=== PATIENT | male | born 1970 | race Caucasian/White ===

== ENCOUNTER 2023-11-01 18:29 | Inpatient (IN) | payer MEDICAID, OTHER ==
[~2023-11-01] VITALS: Ht 177.8 cm; Wt 83.4 kg
[2023-11-01] MEDS: INSULIN LISPRO (HUMAN) 100 UNITS/ML ML SC ONE (19:02)
[2023-11-01] MEDS: SODIUM CHLORIDE 0.9% 1,000 ML IV ONE ×2 (19:03→20:42)
[2023-11-01 19:29] LABS: Basophils # (auto) 0 10 ^3/uL (0-0.2); Basophils % (auto) 0.2 % (0.0-2.0); Eosinophils # (auto) 0 10 ^3/uL (0-0.8); Hemoglobin 12.1 g/dL (13.5-17.5); Lymphocytes # (auto) 0.4 10 ^3/uL (0.4-5.4); Lymphocytes % (auto) 1.7 % (10.0-50.0); Mean Corpuscular Hemoglobin 27.5 pg (28.0-32.0); Mean Corpuscular Hgb Conc. 32.8 g/dL (32.0-36.0); Mean Corpuscular Volume 83.9 fL (80.0-100.0); Monocytes # (auto) 1.3 10 ^3/uL (0-1.3); Neutrophils % (auto) 92.1 % (37.0-80.0); Red Blood Cells 4.41 10^6/uL (4.5-5.90); Red Cell Distribution Width 13.7 % (11.8-14.3); White Blood Cell 21.7 10^3/uL (4.4-10.8)
[2023-11-01 20:00] VITALS: PULSE 99; RESP 31; O2SAT 97
[2023-11-01 20:10] LABS: Alanine Aminotransferase 88 U/L (7-40); Albumin 3.9 g/dL (3.2-4.8); Alkaline Phosphatase 207 U/L (46-116); Anion Gap 12 (5-15); Aspartate Aminotransferase 188 U/L (13-40); BUN/Creatinine Ratio 14.6 (10.0-20.0); Bilirubin, Total 1.3 mg/dL (0.2-1.0); Blood Urea Nitrogen 20 mg/dL (9-23); Calcium 9.5 mg/dL (8.7-10.4); Carbon Dioxide 22 mmol/L (20-30); Chloride 88 mmol/L (98-107); Lipase 24 U/L (12-53); Potassium 4.5 mmol/L (3.5-5.1); Sodium 122 mmol/L (136-145); Total Protein 7.1 g/dL (5.7-8.2)
[2023-11-01 20:16] LABS: Glucose 588 mg/dL (74-106); Lactic Acid w/Reflex 4.8 mmol/L (0.4-2.0)
[2023-11-01] MEDS: FUROSEMIDE 40 MG/4 ML VIAL IV ONE (20:43)
[2023-11-01] MEDS: InsuLIN REG 1unit/0.01ml Soln (100units/ml) SC ONE (20:52)
[2023-11-01] MEDS ORDERED: VANCOMYCIN PER PHARMACY 0 MG IV SCH (22:15)
[2023-11-01] MEDS: PIPERACILLIN-TAZOB 3.375GM 100 ML IV ONE (22:32)
[2023-11-02] VITALS (8 sets, daily range): BP systolic 100–132; BP diastolic 69–82; PULSE 80–95; RESP 18–20; TEMP 97.9–98.7; O2SAT 92–96
[2023-11-02] MEDS ORDERED: NITROGLYCERIN 0.4 MG SL TAB SL PRN (00:30)
[2023-11-02] MEDS ORDERED: MORPHINE SULFATE INJ 2 MG/ml SYRG IV PRN (00:30)
[2023-11-02] MEDS ORDERED: DEXTROSE (50%) 50ML SYRG IV PRN (00:30)
[2023-11-02] MEDS: SODIUM CHLORIDE 0.9% 1,000 ML IV SCH (01:16)
[2023-11-02] MEDS: VANCOMYCIN 1GM/200ML 200 ML IV ONE (01:16)
[2023-11-02] MEDS: ACCU-CHEK COMFORT CURVE STRIP VI SCH (04:00)
[2023-11-02] MEDS ORDERED: ASPI81CH59 PO (04:04)
[2023-11-02] MEDS ORDERED: ATOR40TA52 PO (04:04)
[2023-11-02] MEDS: InsuLIN REG 1unit/0.01ml Soln (100units/ml) SC SCH ×2 (04:41→09:00)
[2023-11-02] MEDS: cefTRIAXone 1GM/50ML D5W 50 ML IV SCH (08:21)
[2023-11-02] MEDS: HEPARIN SODIUM (PORCINE) 5000 UNITS/ML 1ML VIAL SC SCH (09:03)
[2023-11-02] MEDS: FAMOTIDINE (10MG/ML) 2ML VL IV SCH (09:04)
[2023-11-02] MEDS: FUROSEMIDE 40 MG/4 ML VIAL IV SCH (09:05)
[2023-11-02] MEDS: ASPirin 81 mg TAB PO SCH (09:05)
[2023-11-02] MEDS: CARVEDILOL 3.125 MG TAB PO SCH (09:06)
[2023-11-02 10:00] LABS: Magnesium 1.8 mg/dL (1.6-2.6)
[2023-11-02] MEDS: VANCOMYCIN 1GM/200ML 200 ML IV SCH (11:29)
[2023-11-02 11:31] LABS: Alanine Aminotransferase 158 U/L (7-40); Albumin 3.6 g/dL (3.2-4.8); Alkaline Phosphatase 187 U/L (46-116); Anion Gap 11 (5-15); Aspartate Aminotransferase 263 U/L (13-40); Bilirubin, Total 0.8 mg/dL (0.2-1.0); Blood Urea Nitrogen 24 mg/dL (9-23); Calcium 8.8 mg/dL (8.5-10.1); Carbon Dioxide 20 mmol/L (20-30); Chloride 96 mmol/L (98-107); Glucose 277 mg/dL (74-106); Potassium 3.8 mmol/L (3.5-5.1); Sodium 127 mmol/L (136-145); Total Protein 6.4 g/dL (5.7-8.2)
[2023-11-02] MEDS: HYDROcodone-ACET 5/325MG TAB PO PRN (11:34)
[2023-11-02 11:41] LABS: Urine Bacteria None Seen /hpf (None Seen)
[2023-11-02 11:44] LABS: Basophils # (auto) 0.1 10 ^3/uL (0-0.2); Basophils % (auto) 0.3 % (0.0-2.0); Eosinophils # (auto) 0 10 ^3/uL (0-0.8); Hematocrit 31.8 % (41.0-53.0); Hemoglobin 10.7 g/dL (13.5-17.5); Lymphocytes # (auto) 0.7 10 ^3/uL (0.4-5.4); Lymphocytes % (auto) 3.6 % (10.0-50.0); Mean Corpuscular Hemoglobin 27.4 pg (28.0-32.0); Mean Corpuscular Hgb Conc. 33.6 g/dL (32.0-36.0); Mean Corpuscular Volume 81.4 fL (80.0-100.0); Monocytes # (auto) 1.8 10 ^3/uL (0-1.3); Neutrophils # (auto) 17.2 10 ^3/uL (1.6-8.6); Neutrophils % (auto) 87.1 % (37.0-80.0); Nucleated Red Blood Cells % 0.1 %; Red Blood Cells 3.91 10^6/uL (4.5-5.90); Red Cell Distribution Width 13.6 % (11.8-14.3); White Blood Cell 19.7 10^3/uL (4.4-10.8)
[2023-11-02 11:49] LABS: Urine Blood 1+ /uL (Negative); Urine Clarity Turbid (Clear); Urine Color Yellow (Yellow); Urine Hyaline Cast MOD /lpf (0 - 2); Urine Mucus FEW (None Seen); Urine Protein, UAD 2+ (Negative); Urine Specific Gravity 1.033 (1.001-1.035); Urine Urobilinogen 4 mg/dL (Negative); Urine WBC 4 /hpf (0 - 3); Urine pH 5.5 (5.0-9.0)
[2023-11-02 12:03] LABS: Amphetamine Screen, Urine Neg (NEGATIVE); Barbiturate Scree,Urine Neg (NEGATIVE); Benzodiazephine Screen, Urine Neg (NEGATIVE); Cannabinoid Screen, Urine Pos (NEGATIVE); Cocaine Screen, Urine Neg (NEGATIVE); Opiate Scree,Urine Neg (NEGATIVE); Phencyclidine Screen, Urine Neg (NEGATIVE)
[2023-11-02 12:27] LABS: Erythrocyte Sedimentation Rate 97 mm/hr (0-20)
[2023-11-02] MEDS: INSULIN LANTUS (GLARGINE) 1 /0.01ml (100units/ml) SC SCH (22:30)
[2023-11-03] VITALS (7 sets, daily range): BP systolic 93–109; BP diastolic 64–76; PULSE 65–85; RESP 18–65; TEMP 97.9–99.8; O2SAT 97–100
[2023-11-03 07:51] LABS: Basophils # (auto) 0.1 10 ^3/uL (0-0.2); Basophils % (auto) 0.4 % (0.0-2.0); Eosinophils # (auto) 0 10 ^3/uL (0-0.8); Eosinophils % (auto) 0.1 % (0.0-7.0); Hematocrit 32.1 % (41.0-53.0); Hemoglobin 10.6 g/dL (13.5-17.5); Lymphocytes % (auto) 5.6 % (10.0-50.0); Mean Corpuscular Hemoglobin 27.2 pg (28.0-32.0); Mean Corpuscular Hgb Conc. 33.1 g/dL (32.0-36.0); Mean Corpuscular Volume 82.1 fL (80.0-100.0); Monocytes # (auto) 1.3 10 ^3/uL (0-1.3); Neutrophils # (auto) 15.7 10 ^3/uL (1.6-8.6); Neutrophils % (auto) 86.9 % (37.0-80.0); Nucleated Red Blood Cells % 0.2 %; Red Blood Cells 3.91 10^6/uL (4.5-5.90); Red Cell Distribution Width 13.9 % (11.8-14.3)
[2023-11-03 08:09] LABS: Alanine Aminotransferase 913 U/L (7-40); Albumin 3.3 g/dL (3.2-4.8); Alkaline Phosphatase 218 U/L (46-116); Anion Gap 12 (5-15); BUN/Creatinine Ratio 25.1 (10.0-20.0); Bilirubin, Total 0.8 mg/dL (0.2-1.0); Calcium 8.2 mg/dL (8.5-10.1); Carbon Dioxide 19 mmol/L (20-30); Chloride 98 mmol/L (98-107); Potassium 3.7 mmol/L (3.5-5.1); Sodium 129 mmol/L (136-145); Total Protein 5.8 g/dL (5.7-8.2)
[2023-11-03 08:12] LABS: Blood Urea Nitrogen 46 mg/dL (9-23); Glucose 143 mg/dL (74-106)
[2023-11-03 08:20] LABS: Aspartate Aminotransferase 2301 U/L (13-40)
[2023-11-03 08:46] LABS: Erythrocyte Sedimentation Rate 102 mm/hr (0-20)
[2023-11-03 10:34] LABS: Hepatitis B Core Total AB Negative (Negative)
[2023-11-03 10:46] LABS: Hepatitis A Total Antibody Negative (Negative); Hepatitis B Surface Antibody Negative (Negative); Hepatitis B Surface Antigen Negative (Negative); Hepatitis C Antibody Negative (Negative)
[2023-11-03] MEDS: MORPHINE SULFATE INJ 2 MG/ml SYRG IV PRN (12:57)
[2023-11-03] MEDS: ONDANSETRON HCL 4 MG/2 ML VIAL IV PRN (13:53)
[2023-11-04] VITALS (8 sets, daily range): BP systolic 94–115; BP diastolic 60–83; PULSE 68–96; RESP 14–24; TEMP 97.7–98.4; O2SAT 96–99
[2023-11-04 06:46] LABS: Hematocrit 34.4 % (41.0-53.0); Hemoglobin 11.5 g/dL (13.5-17.5); Mean Corpuscular Hemoglobin 27.6 pg (28.0-32.0); Mean Corpuscular Hgb Conc. 33.5 g/dL (32.0-36.0); Mean Corpuscular Volume 82.3 fL (80.0-100.0); Red Blood Cells 4.18 10^6/uL (4.5-5.90); White Blood Cell 19.9 10^3/uL (4.4-10.8)
[2023-11-04 06:52] LABS: INR 1.45 (0.9-1.15)
[2023-11-04 06:59] LABS: Band Neutrophils % (manual) 0; Basophils % (manual) 0 (0.0-2.0); Blast Cells 0; Eosinophils % (manual) 0 (0-7); Metamyelocytes % 0; Myelocytes % 0; Promyelocytes % 0; Reactive Lymphocytes 0
[2023-11-04 07:00] LABS: Alanine Aminotransferase 845 U/L (7-40); Albumin 3.1 g/dL (3.2-4.8); Alkaline Phosphatase 220 U/L (46-116); Anion Gap 14 (5-15); BUN/Creatinine Ratio 30.6 (10.0-20.0); Carbon Dioxide 16 mmol/L (20-30); Chloride 101 mmol/L (98-107); Glucose 135 mg/dL (74-106); Potassium 3.6 mmol/L (3.5-5.1); Sodium 131 mmol/L (136-145)
[2023-11-04 07:01] LABS: Bilirubin, Total 0.9 mg/dL (0.2-1.0); Total Protein 5.7 g/dL (5.7-8.2)
[2023-11-04 07:11] LABS: Aspartate Aminotransferase 1114 U/L (13-40); Blood Urea Nitrogen 60 mg/dL (9-23)
[2023-11-04 09:32] LABS: Lymphocytes % (manual) 7 (10.0-50.0); Monocytes % (manual) 9 (0-12); Platelet Estimate Increased
[2023-11-04] MEDS: VANCOMYCIN 1GM/200ML 200 ML IV SCH (10:35)
[2023-11-04] MEDS: SODIUM BICARB 50mEq/50ml Vial 50 ML in SOD CHL 0.45% 1,000 ML IV SCH (13:32)
[2023-11-05] VITALS (8 sets, daily range): BP systolic 123–143; BP diastolic 71–90; PULSE 76–85; RESP 18–20; TEMP 96.2–98.7; O2SAT 93–96
[2023-11-05 07:07] LABS: Hematocrit 33.6 % (41.0-53.0); Red Cell Distribution Width 14.2 % (11.8-14.3); White Blood Cell 24.6 10^3/uL (4.4-10.8)
[2023-11-05 07:11] LABS: Hemoglobin 11.2 g/dL (13.5-17.5); Mean Corpuscular Hemoglobin 27.5 pg (28.0-32.0); Mean Corpuscular Hgb Conc. 33.5 g/dL (32.0-36.0); Mean Corpuscular Volume 82.1 fL (80.0-100.0); Red Blood Cells 4.09 10^6/uL (4.5-5.90)
[2023-11-05 07:14] LABS: Alanine Aminotransferase 528 U/L (7-40); Albumin 3.1 g/dL (3.2-4.8); Alkaline Phosphatase 289 U/L (46-116); Anion Gap 13 (5-15); Aspartate Aminotransferase 335 U/L (13-40); BUN/Creatinine Ratio 39.4 (10.0-20.0); Blood Urea Nitrogen 61 mg/dL (9-23); Calcium 7.9 mg/dL (8.5-10.1); Carbon Dioxide 19 mmol/L (20-30); Chloride 101 mmol/L (98-107); Glucose 90 mg/dL (74-106); Potassium 3.2 mmol/L (3.5-5.1); Sodium 133 mmol/L (136-145); Total Protein 5.7 g/dL (5.7-8.2)
[2023-11-05 07:20] LABS: Band Neutrophils % (manual) 0; Basophils % (manual) 0 (0.0-2.0); Blast Cells 0; Eosinophils % (manual) 0 (0-7); Metamyelocytes % 0; Myelocytes % 0; Promyelocytes % 0; Reactive Lymphocytes 0
[2023-11-05 08:22] LABS: Lymphocytes % (manual) 6 (10.0-50.0); Monocytes % (manual) 8 (0-12)
[2023-11-05 08:23] LABS: Platelet Estimate Increased
[2023-11-05 08:24] LABS: RBC Morphology Normal
[2023-11-05] MEDS: FUROSEMIDE 20 MG/2 ML VIAL IV SCH (10:14)
[2023-11-05] MEDS: POTASSIUM CHLORIDE 40 MEQ, LIDOCAINE 1% (LOCAL ANESTH.) 4 ML in SODIUM CHL 0.9% 250 ML IV ONE (10:45)
[2023-11-05] MEDS ORDERED: PROPOFOL 10 MG/ML 20 ML IV ONE (13:35)
[2023-11-05] MEDS ORDERED: fentaNYL CITRATE 100 MCG/2 ML VL ONE (13:36)
[2023-11-05] MEDS ORDERED: ePHEDrine SULFATE 50 MG/ML AMP ONE (13:58)
[2023-11-05] MEDS ORDERED: PHENYLEPHRINE HCL 10 MG/ML VL ONE (14:02)
[2023-11-05] MEDS: SODIUM BICARB IV SCH (14:30)
[2023-11-05] MEDS: POTASSIUM CHLORIDE IV SCH (14:30)
[2023-11-05] MEDS: [UNRECOGNIZED DRUG - OTHER] IV SCH (14:30)
[2023-11-05] MEDS ORDERED: MEPERIDINE HCL (25 MG/ML) 1ML VIAL IV PRN (14:45)
[2023-11-05] MEDS ORDERED: HYDROmorphone HCL 2 MG/ML VL/or syr IV PRN (14:45)
[2023-11-05] MEDS: ONDANSETRON HCL 4 MG/2 ML VIAL IV ONE (14:45)
[2023-11-05] MEDS ORDERED: VANCOMYCIN 1GM/200ML 200 ML IV SCH (22:00)
[2023-11-06] VITALS (8 sets, daily range): BP systolic 109–129; BP diastolic 65–83; PULSE 78–85; RESP 16–18; TEMP 97.3–98.3; O2SAT 92–96
[2023-11-06 07:02] LABS: Hematocrit 33.4 % (41.0-53.0); Mean Corpuscular Hemoglobin 26.9 pg (28.0-32.0); Mean Corpuscular Volume 81.5 fL (80.0-100.0); Red Cell Distribution Width 14.3 % (11.8-14.3); White Blood Cell 22.6 10^3/uL (4.4-10.8)
[2023-11-06 07:09] LABS: Anion Gap 7 (5-15); Basophils % (manual) 0 (0.0-2.0); Blast Cells 0; Carbon Dioxide 22 mmol/L (20-30); Chloride 105 mmol/L (98-107); Eosinophils % (manual) 0 (0-7); Metamyelocytes % 0; Myelocytes % 0; Potassium 3.3 mmol/L (3.5-5.1); Promyelocytes % 0; Reactive Lymphocytes 0; Sodium 134 mmol/L (136-145)
[2023-11-06 07:11] LABS: Calcium 7.8 mg/dL (8.5-10.1)
[2023-11-06 07:16] LABS: BUN/Creatinine Ratio 46.2 (10.0-20.0); Blood Urea Nitrogen 48 mg/dL (9-23); Glucose 114 mg/dL (74-106)
[2023-11-06 08:30] LABS: Band Neutrophils % (manual) 16; Lymphocytes % (manual) 16 (10.0-50.0); Monocytes % (manual) 4 (0-12); Platelet Estimate Increased
[2023-11-06] MEDS: EMPAGLIFLOZIN 10 MG TAB PO SCH (15:57)
[2023-11-06] MEDS: POTASSIUM CHL 20 Meq TABLET PO ONE (15:58)
[2023-11-06] MEDS: VANCOMYCIN 750mg/150ml 150 ML IV SCH (17:23)
[2023-11-07] VITALS (7 sets, daily range): BP systolic 116–148; BP diastolic 71–90; PULSE 78–82; RESP 14–98; TEMP 97.5–98.2; O2SAT 92–98
[2023-11-07 06:47] LABS: Mean Corpuscular Hgb Conc. 33.1 g/dL (32.0-36.0)
[2023-11-07 06:51] LABS: Hematocrit 35.9 % (41.0-53.0); Hemoglobin 11.9 g/dL (13.5-17.5); Mean Corpuscular Hemoglobin 27.5 pg (28.0-32.0); Mean Corpuscular Volume 83.1 fL (80.0-100.0); Red Blood Cells 4.32 10^6/uL (4.5-5.90); Red Cell Distribution Width 14.6 % (11.8-14.3); White Blood Cell 21.7 10^3/uL (4.4-10.8)
[2023-11-07 07:00] LABS: Chloride 102 mmol/L (98-107); Potassium 3.6 mmol/L (3.5-5.1); Sodium 135 mmol/L (136-145)
[2023-11-07 07:03] LABS: Anion Gap 8 (5-15); Calcium 8.1 mg/dL (8.7-10.4); Carbon Dioxide 25 mmol/L (20-30)
[2023-11-07 07:08] LABS: BUN/Creatinine Ratio 38.4 (10.0-20.0); Glucose 85 mg/dL (74-106)
[2023-11-07 07:09] LABS: Band Neutrophils % (manual) 0; Basophils % (manual) 0 (0.0-2.0); Blast Cells 0; Promyelocytes % 0; Reactive Lymphocytes 0
[2023-11-07 07:12] LABS: Blood Urea Nitrogen 38 mg/dL (9-23)
[2023-11-07 08:38] LABS: Eosinophils % (manual) 6 (0-7); Lymphocytes % (manual) 2 (10.0-50.0); Metamyelocytes % 2; Monocytes % (manual) 12 (0-12); Myelocytes % 9; Platelet Estimate Increased
[2023-11-07 17:32] LABS: Protein, Urine 28.1 mg/dL (0.0-11.9)
[2023-11-07 17:34] LABS: Creatinine, Urine 52.43 mg/dL (30.0-125.0)
[2023-11-08] VITALS (8 sets, daily range): BP systolic 112–154; BP diastolic 68–97; PULSE 71–82; RESP 17–19; TEMP 97–98; O2SAT 95–98
[2023-11-08 07:03] LABS: Chloride 106 mmol/L (98-107); Potassium 3.9 mmol/L (3.5-5.1); Sodium 138 mmol/L (136-145)
[2023-11-08 07:04] LABS: Anion Gap 6 (5-15); Calcium 7.7 mg/dL (8.5-10.1); Carbon Dioxide 26 mmol/L (20-30)
[2023-11-08 07:09] LABS: BUN/Creatinine Ratio 40.2 (10.0-20.0); Blood Urea Nitrogen 35 mg/dL (9-23); Glucose 106 mg/dL (74-106)
[2023-11-08] MEDS ORDERED: DEXTROSE (50%) 50ML SYRG IV PRN (16:45)
[2023-11-08] MEDS: ENALAPRIL MALEATE 2.5 MG TAB PO SCH (18:00)
[2023-11-08] MEDS: ACCU-CHEK COMFORT CURVE STRIP VI SCH (18:00)
[2023-11-08] MEDS: InsuLIN REG 1unit/0.01ml Soln (100units/ml) SC SCH (18:02)
[2023-11-08] MEDS: VANCOMYCIN 750mg/150ml 150 ML IV SCH (21:01)
[2023-11-09] VITALS (14 sets, daily range): BP systolic 91–155; BP diastolic 53–95; PULSE 76–109; RESP 16–21; TEMP 97.3–102.7; O2SAT 90–99
[2023-11-09 07:07] LABS: Hematocrit 38.4 % (41.0-53.0); Hemoglobin 12.5 g/dL (13.5-17.5); Mean Corpuscular Hgb Conc. 32.6 g/dL (32.0-36.0); Mean Corpuscular Volume 82.7 fL (80.0-100.0); Red Blood Cells 4.65 10^6/uL (4.5-5.90); Red Cell Distribution Width 14.8 % (11.8-14.3); White Blood Cell 19.3 10^3/uL (4.4-10.8)
[2023-11-09 07:35] LABS: Basophils % (manual) 0 (0.0-2.0); Blast Cells 0; Myelocytes % 0; Promyelocytes % 0
[2023-11-09 07:45] LABS: Alanine Aminotransferase 150 U/L (7-40); Albumin 3.2 g/dL (3.2-4.8); Alkaline Phosphatase 312 U/L (46-116); Anion Gap 9 (5-15); Aspartate Aminotransferase 31 U/L (13-40); Calcium 8.5 mg/dL (8.5-10.1); Carbon Dioxide 25 mmol/L (20-30); Chloride 106 mmol/L (98-107); Glucose 140 mg/dL (74-106); Potassium 3.9 mmol/L (3.5-5.1); Sodium 140 mmol/L (136-145)
[2023-11-09 07:46] LABS: Bilirubin, Total 0.7 mg/dL (0.2-1.0); Total Protein 6.3 g/dL (5.7-8.2)
[2023-11-09 08:00] LABS: INR 1.18 (0.9-1.15); Partial Thromboplastin Time 30.2 SEC (24.5-34.5); Prothrombin Time 12.4 sec (9.3-11.8)
[2023-11-09 08:34] LABS: Blood Urea Nitrogen 24 mg/dL (9-23)
[2023-11-09 08:37] LABS: Band Neutrophils % (manual) 6; Eosinophils % (manual) 3 (0-7); Lymphocytes % (manual) 9 (10.0-50.0); Metamyelocytes % 2; Monocytes % (manual) 10 (0-12); Reactive Lymphocytes 1
[2023-11-09 08:38] LABS: Platelet Estimate Increased
[2023-11-09 08:39] LABS: RBC Morphology Normal
[2023-11-09] MEDS: LIDOCAINE 2% JELLY 11ml (GLYDO) ONE (08:45)
[2023-11-09 08:46] LABS: % Iron Saturation 11.1 % (20-55)
[2023-11-09] MEDS: ceFAZolin 2 GM/D5W50ml 50 ML IV ONE (09:07)
[2023-11-09] MEDS: ONDANSETRON HCL 4 MG/2 ML VIAL IV ONE (09:15)
[2023-11-09] MEDS ORDERED: HYDROmorphone HCL 2 MG/ML VL/or syr IV PRN ×2 (09:15)
[2023-11-09] MEDS ORDERED: MIDAZOLAM HCL 2MG/2ML 2ml VIAL (1mg/ml) ONE (09:21)
[2023-11-09] MEDS ORDERED: fentaNYL CITRATE 100 MCG/2 ML VL ONE (09:21)
[2023-11-09] MEDS ORDERED: LIDOCAINE HCL 100 MG/5ML (2%) SYRG INJ IV ONE (09:25)
[2023-11-09] MEDS ORDERED: ONDANSETRON HCL 4 MG/2 ML VIAL ONE (09:25)
[2023-11-09] MEDS ORDERED: PROPOFOL 10 MG/ML 20 ML IV ONE (09:25)
[2023-11-09] MEDS ORDERED: LIDOCAINE 2% (LOCAL ANESTH.) PF 5ml SDV ONE (09:26)
[2023-11-09] MEDS ORDERED: ePHEDrine SULFATE 50 MG/ML AMP ONE (09:53)
[2023-11-09] MEDS ORDERED: NEOSTIGMINE 1 MG/ML INJ (10mg/10ML VIAL) ONE (10:31)
[2023-11-09] MEDS ORDERED: GLYCOPYRROLATE 0.2 MG/ML 1ML VIAL ONE (10:31)
[2023-11-09 18:02] LABS: Hematocrit 43.4 % (41.0-53.0); Hemoglobin 13.8 g/dL (13.5-17.5); Mean Corpuscular Hemoglobin 26.7 pg (28.0-32.0); Mean Corpuscular Hgb Conc. 31.9 g/dL (32.0-36.0); Mean Corpuscular Volume 83.7 fL (80.0-100.0); Red Blood Cells 5.18 10^6/uL (4.5-5.90); Red Cell Distribution Width 15.4 % (11.8-14.3); White Blood Cell 24.2 10^3/uL (4.4-10.8)
[2023-11-09 18:05] LABS: Basophils % (manual) 0 (0.0-2.0); Blast Cells 0; Metamyelocytes % 0; Myelocytes % 0; Promyelocytes % 0; Reactive Lymphocytes 0
[2023-11-09 18:10] LABS: Chloride 108 mmol/L (98-107); Potassium 5.2 mmol/L (3.5-5.1); Sodium 142 mmol/L (136-145)
[2023-11-09 18:11] LABS: Anion Gap 9 (5-15); Carbon Dioxide 25 mmol/L (20-30)
[2023-11-09 18:12] LABS: Calcium 8.5 mg/dL (8.5-10.1)
[2023-11-09 18:12] LABS: Base Excess -8.1 mmol/L (-2.0-2.0)
[2023-11-09 18:16] LABS: Glucose 107 mg/dL (74-106)
[2023-11-09 18:17] LABS: BUN/Creatinine Ratio 21.7 (10.0-20.0); Blood Urea Nitrogen 23 mg/dL (9-23)
[2023-11-09 18:17] LABS: Urine Bacteria None Seen /hpf (None Seen)
[2023-11-09] MEDS: ACETAMINOPHEN 325 MG TAB PO PRN (18:19)
[2023-11-09 18:32] LABS: Urine Blood Negative /uL (Negative); Urine Clarity Clear (Clear); Urine Color Yellow (Yellow); Urine Protein, UAD Negative (Negative); Urine Specific Gravity 1.011 (1.001-1.035); Urine Urobilinogen Normal (Negative); Urine WBC 1 /hpf (0 - 3)
[2023-11-09 18:48] LABS: Band Neutrophils % (manual) 12; Eosinophils % (manual) 1 (0-7); Lymphocytes % (manual) 15 (10.0-50.0); Monocytes % (manual) 4 (0-12)
[2023-11-09 18:49] LABS: Anisocytosis Slight; Large Platelets FEW; Macrocytosis Slight; Platelet Estimate Increa; Polychromasia Slight
[2023-11-09 19:40] LABS: INR 1.25 (0.9-1.15); Partial Thromboplastin Time 27.9 SEC (24.5-34.5)
[2023-11-10] VITALS (10 sets, daily range): BP systolic 102–136; BP diastolic 55–83; PULSE 75–87; RESP 15–25; TEMP 97.1–98.4; O2SAT 10–100
[2023-11-10] MEDS: VANCOMYCIN 750mg/150ml 150 ML IV SCH (00:17)
[2023-11-10 06:03] LABS: Hemoglobin 10.6 g/dL (13.5-17.5)
[2023-11-10 06:05] LABS: Hematocrit 33.6 % (41.0-53.0); Mean Corpuscular Hemoglobin 26.6 pg (28.0-32.0); Mean Corpuscular Hgb Conc. 31.6 g/dL (32.0-36.0); Mean Corpuscular Volume 83.9 fL (80.0-100.0); Red Cell Distribution Width 14.9 % (11.8-14.3)
[2023-11-10 06:17] LABS: Chloride 107 mmol/L (98-107); Potassium 4.1 mmol/L (3.5-5.1); Sodium 140 mmol/L (136-145)
[2023-11-10 06:18] LABS: Anion Gap 6 (5-15); Calcium 7.8 mg/dL (8.7-10.4); Carbon Dioxide 27 mmol/L (20-30)
[2023-11-10 06:23] LABS: BUN/Creatinine Ratio 18.8 (10.0-20.0); Blood Urea Nitrogen 18 mg/dL (9-23); Glucose 82 mg/dL (74-106)
[2023-11-10 06:28] LABS: Basophils % (manual) 0 (0.0-2.0); Blast Cells 0; Eosinophils % (manual) 0 (0-7); Metamyelocytes % 0; Myelocytes % 0; Promyelocytes % 0; Reactive Lymphocytes 0
[2023-11-10 07:28] LABS: Band Neutrophils % (manual) 19; Lymphocytes % (manual) 4 (10.0-50.0); Monocytes % (manual) 3 (0-12)
[2023-11-10 07:29] LABS: Anisocytosis Slight; Hypochromia Slight
[2023-11-10 07:30] LABS: Platelet Estimate Adequate
[2023-11-10] MEDS: SODIUM CHLORIDE 0.9% 1,000 ML IV ONE (11:48)
[2023-11-10] MEDS: DOCUSATE SOD 100 MG CAP PO PRN (14:07)
[2023-11-11] VITALS (14 sets, daily range): BP systolic 126–154; BP diastolic 70–89; PULSE 80–88; RESP 15–27; TEMP 97.5–98; O2SAT 95–100
[2023-11-11 06:35] LABS: Hemoglobin 10.6 g/dL (13.5-17.5); Lymphocytes # (auto) 1.1 10 ^3/uL (0.4-5.4); Monocytes # (auto) 1.1 10 ^3/uL (0-1.3); Neutrophils # (auto) 25.8 10 ^3/uL (1.6-8.6); White Blood Cell 28.6 10^3/uL (4.4-10.8)
[2023-11-11 06:44] LABS: Basophils # (auto) 0.1 10 ^3/uL (0-0.2); Basophils % (auto) 0.2 % (0.0-2.0); Eosinophils # (auto) 0.5 10 ^3/uL (0-0.8); Eosinophils % (auto) 1.8 % (0.0-7.0); Hematocrit 33.2 % (41.0-53.0); Lymphocytes % (auto) 3.9 % (10.0-50.0); Mean Corpuscular Hemoglobin 26.4 pg (28.0-32.0); Mean Corpuscular Hgb Conc. 31.9 g/dL (32.0-36.0); Mean Corpuscular Volume 82.7 fL (80.0-100.0); Monocytes % (auto) 3.8 % (0.0-12.0); Neutrophils % (auto) 90.3 % (37.0-80.0); Red Blood Cells 4.02 10^6/uL (4.5-5.90)
[2023-11-11 06:52] LABS: Alanine Aminotransferase 63 U/L (7-40); Albumin 2.7 g/dL (3.2-4.8); Alkaline Phosphatase 214 U/L (46-116); Anion Gap 10 (5-15); Aspartate Aminotransferase 20 U/L (13-40); BUN/Creatinine Ratio 26.2 (10.0-20.0); Blood Urea Nitrogen 17 mg/dL (9-23); Calcium 7.8 mg/dL (8.5-10.1); Carbon Dioxide 25 mmol/L (20-30); Chloride 109 mmol/L (98-107); Glucose 97 mg/dL (74-106); Potassium 3.9 mmol/L (3.5-5.1); Sodium 144 mmol/L (136-145)
[2023-11-11 06:53] LABS: Bilirubin, Total 0.5 mg/dL (0.2-1.0); Total Protein 5.3 g/dL (5.7-8.2)
[2023-11-12] VITALS (9 sets, daily range): BP systolic 127–141; BP diastolic 78–88; PULSE 78–87; RESP 17–20; TEMP 97.5–98; O2SAT 93–99
[2023-11-12] MEDS: HEPATITIS B VACCINE PED (PF) 10 MCG/0.5 ML IM ONE (00:08)
[2023-11-12 07:23] LABS: Basophils # (auto) 0.1 10 ^3/uL (0-0.2); Basophils % (auto) 0.3 % (0.0-2.0); Eosinophils # (auto) 0.5 10 ^3/uL (0-0.8); Lymphocytes # (auto) 1.6 10 ^3/uL (0.4-5.4); Mean Corpuscular Volume 84.2 fL (80.0-100.0); Monocytes % (auto) 5.4 % (0.0-12.0); White Blood Cell 19.3 10^3/uL (4.4-10.8)
[2023-11-12 07:26] LABS: Eosinophils % (auto) 2.7 % (0.0-7.0); Hematocrit 32.3 % (41.0-53.0); Lymphocytes % (auto) 8.3 % (10.0-50.0); Mean Corpuscular Hemoglobin 26.1 pg (28.0-32.0); Neutrophils % (auto) 83.3 % (37.0-80.0); Red Blood Cells 3.84 10^6/uL (4.5-5.90); Red Cell Distribution Width 14.9 % (11.8-14.3)
[2023-11-12 08:24] LABS: Anion Gap 7 (5-15); Carbon Dioxide 25 mmol/L (20-30); Chloride 106 mmol/L (98-107); Potassium 4.1 mmol/L (3.5-5.1)
[2023-11-12 08:25] LABS: Calcium 7.7 mg/dL (8.5-10.1)
[2023-11-12 08:30] LABS: BUN/Creatinine Ratio 21.9 (10.0-20.0); Blood Urea Nitrogen 14 mg/dL (9-23); Glucose 124 mg/dL (74-106)
[2023-11-12 08:41] LABS: Sodium 138 mmol/L (136-145)
[2023-11-13] VITALS (7 sets, daily range): BP systolic 127–147; BP diastolic 79–93; PULSE 83–88; RESP 16–20; TEMP 97.6–98.3; O2SAT 93–96
[2023-11-13 06:25] LABS: Anion Gap 4 (5-15); Calcium 7.7 mg/dL (8.5-10.1); Carbon Dioxide 26 mmol/L (20-30); Chloride 108 mmol/L (98-107); Potassium 4.2 mmol/L (3.5-5.1); Sodium 138 mmol/L (136-145)
[2023-11-13 06:31] LABS: BUN/Creatinine Ratio 20.7 (10.0-20.0); Blood Urea Nitrogen 12 mg/dL (9-23); Glucose 101 mg/dL (74-106)
[2023-11-13 06:34] LABS: Hemoglobin 10.8 g/dL (13.5-17.5); Monocytes # (auto) 0.9 10 ^3/uL (0-1.3)
[2023-11-13 06:37] LABS: Basophils # (auto) 0.2 10 ^3/uL (0-0.2); Basophils % (auto) 1.1 % (0.0-2.0); Eosinophils # (auto) 0.4 10 ^3/uL (0-0.8); Eosinophils % (auto) 2.1 % (0.0-7.0); Hematocrit 33.4 % (41.0-53.0); Lymphocytes # (auto) 1.5 10 ^3/uL (0.4-5.4); Lymphocytes % (auto) 8.9 % (10.0-50.0); Mean Corpuscular Hemoglobin 26.8 pg (28.0-32.0); Mean Corpuscular Hgb Conc. 32.4 g/dL (32.0-36.0); Mean Corpuscular Volume 82.8 fL (80.0-100.0); Monocytes % (auto) 5.4 % (0.0-12.0); Neutrophils % (auto) 82.5 % (37.0-80.0); Red Blood Cells 4.04 10^6/uL (4.5-5.90); Red Cell Distribution Width 14.9 % (11.8-14.3); White Blood Cell 16.9 10^3/uL (4.4-10.8)
[2023-11-14] VITALS (17 sets, daily range): BP systolic 105–157; BP diastolic 53–93; PULSE 74–83; RESP 16–20; TEMP 97.3–98; O2SAT 88–100
[2023-11-14 05:40] LABS: Basophils # (auto) 0.1 10 ^3/uL (0-0.2); Lymphocytes # (auto) 1.7 10 ^3/uL (0.4-5.4)
[2023-11-14 05:42] LABS: Basophils % (auto) 0.4 % (0.0-2.0); Eosinophils # (auto) 0.3 10 ^3/uL (0-0.8); Eosinophils % (auto) 1.9 % (0.0-7.0); Hematocrit 33.4 % (41.0-53.0); Hemoglobin 10.9 g/dL (13.5-17.5); Lymphocytes % (auto) 9.7 % (10.0-50.0); Mean Corpuscular Hemoglobin 26.7 pg (28.0-32.0); Mean Corpuscular Hgb Conc. 32.6 g/dL (32.0-36.0); Mean Corpuscular Volume 81.9 fL (80.0-100.0); Monocytes # (auto) 1.3 10 ^3/uL (0-1.3); Monocytes % (auto) 7.2 % (0.0-12.0); Neutrophils # (auto) 14.6 10 ^3/uL (1.6-8.6); Neutrophils % (auto) 80.8 % (37.0-80.0); Nucleated Red Blood Cells % 0.2 %; Red Blood Cells 4.08 10^6/uL (4.5-5.90); Red Cell Distribution Width 14.7 % (11.8-14.3)
[2023-11-14 05:54] LABS: Anion Gap 10 (5-15); Carbon Dioxide 26 mmol/L (20-30); Chloride 106 mmol/L (98-107); Potassium 4.1 mmol/L (3.5-5.1); Sodium 142 mmol/L (136-145)
[2023-11-14 05:55] LABS: Calcium 8.1 mg/dL (8.7-10.4)
[2023-11-14 06:00] LABS: BUN/Creatinine Ratio 22.4 (10.0-20.0); Blood Urea Nitrogen 13 mg/dL (9-23); Glucose 69 mg/dL (74-106)
[2023-11-14 06:02] LABS: INR 1.13 (0.9-1.15); Partial Thromboplastin Time 31.4 SEC (24.5-34.5); Prothrombin Time 11.9 sec (9.3-11.8)
[2023-11-14] MEDS ORDERED: KETAMINE 50mg/ML 1ml syringe ONE (08:53)
[2023-11-14] MEDS ORDERED: MIDAZOLAM HCL 2MG/2ML 2ml VIAL (1mg/ml) ONE (08:55)
[2023-11-14] MEDS ORDERED: fentaNYL CITRATE 100 MCG/2 ML VL ONE (08:55)
[2023-11-14] MEDS ORDERED: ONDANSETRON HCL 4 MG/2 ML VIAL ONE (08:56)
[2023-11-14] MEDS ORDERED: SODIUM CHLORIDE LOCK 10 ML ONE (08:56)
[2023-11-14] MEDS ORDERED: MEPERIDINE HCL (50 MG/ML) 1 ML VIAL ONE (08:56)
[2023-11-14] MEDS ORDERED: PROPOFOL 10 MG/ML 20 ML IV ONE (08:56)
[2023-11-14] MEDS ORDERED: fentaNYL CITRATE 100 MCG/2 ML VL IV PRN (09:30)
[2023-11-14] MEDS ORDERED: HYDROmorphone HCL 2 MG/ML VL/or syr IV PRN ×2 (09:30)
[2023-11-14] MEDS: METOCLOPRAMIDE HCL 5MG/ml INJ 2ml VIAL IV ONE (09:30)
[2023-11-14] MEDS: ACCU-CHEK COMFORT CURVE STRIP VI ONE (09:30)
[2023-11-14] MEDS ORDERED: MORPHINE SULFATE INJ 2 MG/ml SYRG IV PRN (09:30)
[2023-11-14] MEDS: BUPIVACAINE 0.5% P/F INJ 10 ML VIAL ONE (09:35)
[2023-11-14] MEDS ORDERED: MORPHINE SULF PF 5 MG/10 ML VIAL ONE (09:37)
[2023-11-14] MEDS: ceFAZolin 2 GM/D5W50ml 50 ML IV ONE (10:16)
[2023-11-14] MEDS: IPRATROPIUM BROM 0.5 MG/2.5ML INH SOL ONE (12:55)
[2023-11-14] MEDS: IPRATROPIUM BROM 0.5 MG/2.5ML INH SOL NEB ONE (12:55)
[2023-11-14] MEDS: ALBUTEROL SULF 2.5 MG/0.5ML(0.5%) NEB SOLN ONE (12:55)
[2023-11-14] MEDS: ALBUTEROL SULF 2.5 MG/0.5ML(0.5%) NEB SOLN NEB ONE (12:55)
[2023-11-15] VITALS (24 sets, daily range): BP systolic 103–145; BP diastolic 60–81; PULSE 73–92; RESP 14–19; TEMP 96.3–99.1; O2SAT 94–100
[2023-11-15 06:49] LABS: Anion Gap 7 (5-15); Carbon Dioxide 29 mmol/L (20-30); Chloride 104 mmol/L (98-107); Potassium 4.1 mmol/L (3.5-5.1); Sodium 140 mmol/L (136-145)
[2023-11-15 06:51] LABS: Calcium 8.1 mg/dL (8.7-10.4)
[2023-11-15 06:55] LABS: Blood Urea Nitrogen 14 mg/dL (9-23); Glucose 113 mg/dL (74-106)
[2023-11-15 07:45] LABS: Basophils # (auto) 0.1 10 ^3/uL (0-0.2); Basophils % (auto) 0.5 % (0.0-2.0); Eosinophils # (auto) 0.5 10 ^3/uL (0-0.8); Eosinophils % (auto) 2.6 % (0.0-7.0); Hematocrit 29.8 % (41.0-53.0); Hemoglobin 9.5 g/dL (13.5-17.5); Lymphocytes # (auto) 1.5 10 ^3/uL (0.4-5.4); Lymphocytes % (auto) 8.9 % (10.0-50.0); Mean Corpuscular Hemoglobin 25.9 pg (28.0-32.0); Mean Corpuscular Hgb Conc. 31.8 g/dL (32.0-36.0); Mean Corpuscular Volume 81.4 fL (80.0-100.0); Monocytes # (auto) 1.1 10 ^3/uL (0-1.3); Monocytes % (auto) 6.1 % (0.0-12.0); Neutrophils # (auto) 14.3 10 ^3/uL (1.6-8.6); Neutrophils % (auto) 81.9 % (37.0-80.0); Nucleated Red Blood Cells % 0.1 %; Red Blood Cells 3.66 10^6/uL (4.5-5.90); White Blood Cell 17.4 10^3/uL (4.4-10.8)
[2023-11-15] MEDS: Juven Orange Powder PACKET 27.5gm PO SCH (18:55)
[2023-11-16 05:00] VITALS: BP 136/76; PULSE 87; RESP 16; TEMP 98.4; O2SAT 95
[2023-11-16 06:11] LABS: Basophils # (auto) 0.1 10 ^3/uL (0-0.2); Basophils % (auto) 0.4 % (0.0-2.0); Eosinophils # (auto) 0.4 10 ^3/uL (0-0.8); Eosinophils % (auto) 2.4 % (0.0-7.0); Hemoglobin 9.4 g/dL (13.5-17.5); Lymphocytes # (auto) 1.7 10 ^3/uL (0.4-5.4); Lymphocytes % (auto) 11.9 % (10.0-50.0); Mean Corpuscular Hemoglobin 27.2 pg (28.0-32.0); Mean Corpuscular Hgb Conc. 33.4 g/dL (32.0-36.0); Mean Corpuscular Volume 81.3 fL (80.0-100.0); Monocytes # (auto) 1.1 10 ^3/uL (0-1.3); Monocytes % (auto) 7.8 % (0.0-12.0); Neutrophils # (auto) 11.4 10 ^3/uL (1.6-8.6); Neutrophils % (auto) 77.5 % (37.0-80.0); Red Blood Cells 3.45 10^6/uL (4.5-5.90); Red Cell Distribution Width 14.8 % (11.8-14.3); White Blood Cell 14.7 10^3/uL (4.4-10.8)
[2023-11-16 06:12] LABS: Potassium 4.3 mmol/L (3.5-5.1)
[2023-11-16 06:13] LABS: Calcium 8.2 mg/dL (8.7-10.4)
[2023-11-16 06:18] LABS: Albumin 2.8 g/dL (3.2-4.8)
[2023-11-16 09:00] VITALS: BP 148/81; PULSE 92; RESP 16; TEMP 98.1; O2SAT 90
[2023-11-16 13:00] VITALS: BP 139/74; PULSE 94; RESP 19; TEMP 97.6; O2SAT 93
[2023-11-16 16:48] VITALS: BP 139/85; PULSE 88; RESP 18; TEMP 97.9; O2SAT 93
[2023-11-16] MEDS: VANCOMYCIN 750mg/150ml 150 ML IV SCH (21:34)
[2023-11-16 22:00] VITALS: BP 145/85; PULSE 87; RESP 19; TEMP 98.9; O2SAT 96
[2023-11-17 01:00] VITALS: BP 144/79; PULSE 91; RESP 16; TEMP 98.3; O2SAT 97
[2023-11-17 05:00] VITALS: BP 142/79; PULSE 78; RESP 17; TEMP 98.7; O2SAT 95
[2023-11-17 06:19] LABS: Basophils # (auto) 0.1 10 ^3/uL (0-0.2); Basophils % (auto) 0.9 % (0.0-2.0); Eosinophils # (auto) 0.2 10 ^3/uL (0-0.8); Eosinophils % (auto) 1.6 % (0.0-7.0); Hematocrit 28.8 % (41.0-53.0); Hemoglobin 9.4 g/dL (13.5-17.5); Lymphocytes # (auto) 1.4 10 ^3/uL (0.4-5.4); Lymphocytes % (auto) 9.8 % (10.0-50.0); Mean Corpuscular Hemoglobin 27.1 pg (28.0-32.0); Mean Corpuscular Hgb Conc. 32.6 g/dL (32.0-36.0); Mean Corpuscular Volume 82.9 fL (80.0-100.0); Monocytes % (auto) 6.9 % (0.0-12.0); Neutrophils # (auto) 11.4 10 ^3/uL (1.6-8.6); Neutrophils % (auto) 80.8 % (37.0-80.0); Red Blood Cells 3.48 10^6/uL (4.5-5.90); Red Cell Distribution Width 15.6 % (11.8-14.3); White Blood Cell 14.2 10^3/uL (4.4-10.8)
[2023-11-17 09:00] VITALS: BP 126/78; PULSE 67; RESP 17; TEMP 98.1; O2SAT 91
[2023-11-17 13:00] VITALS: BP 141/78; PULSE 93; RESP 18; TEMP 97.5; O2SAT 96
[2023-11-17] MEDS: VANCOMYCIN 750mg/150ml 150 ML IV SCH (15:55)
[2023-11-17 17:00] VITALS: BP 139/83; PULSE 89; RESP 16; TEMP 97.9; O2SAT 97
[2023-11-17 21:00] VITALS: BP 133/81; PULSE 93; RESP 19; TEMP 97.9; O2SAT 96
[2023-11-18 01:00] VITALS: BP 138/79; PULSE 89; RESP 18; TEMP 97.5; O2SAT 97
[2023-11-18 05:00] VITALS: BP 133/86; PULSE 88; RESP 17; TEMP 97.2; O2SAT 98
[2023-11-18 06:26] LABS: Eosinophils # (auto) 0.3 10 ^3/uL (0-0.8); Hemoglobin 9.2 g/dL (13.5-17.5)
[2023-11-18 06:29] LABS: Basophils # (auto) 0.1 10 ^3/uL (0-0.2); Basophils % (auto) 0.9 % (0.0-2.0); Eosinophils % (auto) 2.7 % (0.0-7.0); Hematocrit 27.9 % (41.0-53.0); Lymphocytes % (auto) 15.7 % (10.0-50.0); Mean Corpuscular Hemoglobin 26.8 pg (28.0-32.0); Mean Corpuscular Hgb Conc. 33.1 g/dL (32.0-36.0); Mean Corpuscular Volume 80.8 fL (80.0-100.0); Monocytes # (auto) 0.9 10 ^3/uL (0-1.3); Monocytes % (auto) 7.1 % (0.0-12.0); Neutrophils # (auto) 9.3 10 ^3/uL (1.6-8.6); Neutrophils % (auto) 73.6 % (37.0-80.0); Nucleated Red Blood Cells % 0.2 %; Red Blood Cells 3.45 10^6/uL (4.5-5.90); Red Cell Distribution Width 15.3 % (11.8-14.3); White Blood Cell 12.6 10^3/uL (4.4-10.8)
[2023-11-18 09:00] VITALS: BP 137/79; PULSE 86; RESP 18; TEMP 98.4; O2SAT 99
[2023-11-18 13:00] VITALS: BP 139/86; PULSE 88; RESP 18; TEMP 97.9; O2SAT 93
[2023-11-18 17:00] VITALS: BP 119/70; PULSE 91; RESP 18; TEMP 98.5; O2SAT 94
[2023-11-18 21:00] VITALS: BP 121/71; PULSE 88; RESP 19; TEMP 98; O2SAT 95
[2023-11-19] VITALS (96 sets, daily range): BP systolic 73–160; BP diastolic 40–95; PULSE 69–130; RESP 17–40; TEMP 97.2–102.8; O2SAT 68–100
[2023-11-19] MEDS: ONDANSETRON HCL 4 MG/2 ML VIAL IV ONE (01:15)
[2023-11-19] MEDS ORDERED: ALBUTEROL SULF 2.5 MG/0.5ML(0.5%) NEB SOLN NEB PRN (01:15)
[2023-11-19 03:16] LABS: Base Excess -1.7 mmol/L (-2.0-2.0)
[2023-11-19 03:28] LABS: Basophils # (auto) 0.1 10 ^3/uL (0-0.2); Eosinophils # (auto) 0 10 ^3/uL (0-0.8); Lymphocytes # (auto) 1.4 10 ^3/uL (0.4-5.4); Monocytes # (auto) 0.4 10 ^3/uL (0-1.3); Monocytes % (auto) 2.6 % (0.0-12.0)
[2023-11-19 03:29] LABS: Basophils % (auto) 0.5 % (0.0-2.0); Eosinophils % (auto) 0.2 % (0.0-7.0); Hematocrit 36.1 % (41.0-53.0); Hemoglobin 11.6 g/dL (13.5-17.5); Lymphocytes % (auto) 8.7 % (10.0-50.0); Mean Corpuscular Hemoglobin 26.7 pg (28.0-32.0); Mean Corpuscular Volume 83.4 fL (80.0-100.0); Neutrophils # (auto) 14.4 10 ^3/uL (1.6-8.6); Red Blood Cells 4.33 10^6/uL (4.5-5.90); White Blood Cell 16.3 10^3/uL (4.4-10.8)
[2023-11-19] MEDS: ETOMIDATE (2MG/ML) 20ML VIAL IV ONE (03:36)
[2023-11-19] MEDS: SUCCINYLCHOLINE CHLORIDE 20 MG/ML 10ML VIAL IV ONE (03:36)
[2023-11-19] MEDS: MIDAZOLAM DRIP 50 mg/50mL 50 ML IV ONE (03:39)
[2023-11-19] MEDS: IOHEXOL 350 MG/ML 100ML IJ ONE (03:40)
[2023-11-19 03:44] LABS: Alanine Aminotransferase 23 U/L (7-40); Albumin 3.3 g/dL (3.2-4.8); Alkaline Phosphatase 131 U/L (46-116); Anion Gap 11 (5-15); Aspartate Aminotransferase 14 U/L (13-40); BUN/Creatinine Ratio 21.2 (10.0-20.0); Blood Urea Nitrogen 22 mg/dL (9-23); Calcium 9.2 mg/dL (8.7-10.4); Carbon Dioxide 24 mmol/L (20-30); Chloride 104 mmol/L (98-107); Potassium 4.9 mmol/L (3.5-5.1); Sodium 139 mmol/L (136-145)
[2023-11-19 03:45] LABS: Bilirubin, Total 0.5 mg/dL (0.2-1.0); Total Protein 6.7 g/dL (5.7-8.2)
[2023-11-19 03:56] LABS: Glucose 222 mg/dL (74-106)
[2023-11-19 03:58] LABS: Lactic Acid w/Reflex 2.9 mmol/L (0.4-2.0)
[2023-11-19] MEDS: NOREPINEPHRINE 8 MG/250ML KIT 250 ML IV ONE (03:59)
[2023-11-19] MEDS: NOREPINEPHRINE 8 MG/250ML KIT 250 ML IV SCH (04:00)
[2023-11-19] MEDS: MIDAZOLAM DRIP 50 mg/50mL 50 ML IV SCH (04:00)
[2023-11-19 04:21] LABS: Platelet Estimate Markedly Increased
[2023-11-19 04:22] LABS: Large Platelets FEW
[2023-11-19] MEDS: AMIODARONE HCL (50 MG/ ML) 3 ML VIAL IV ONE (04:31)
[2023-11-19] MEDS: AMIODARONE 450mg/250ml AE 250 ML IV SCH (04:32)
[2023-11-19] MEDS: EPINEPHrine HCL 250 ML IV ONE (04:34)
[2023-11-19] MEDS: EPINEPHrine HCL 250 ML IV SCH (04:35)
[2023-11-19] MEDS: CALCIUM CHLOR(10%) 100MG/ML 10ML SYRINGE IV ONE (04:48)
[2023-11-19] MEDS: EPINEPHrine HCL 1 MG/10 ML SYRG ONE (04:49)
[2023-11-19] MEDS: SODIUM BICARB 8.4% 50Meq/50ml SYR INJ ONE (04:50)
[2023-11-19] MEDS: VASOPRESSIN 20 UNIT/ML ONE (04:52)
[2023-11-19] MEDS: metroNIDAZOLE 500MG/100ML 100 ML IV ONE ×3 (05:03→05:38)
[2023-11-19] MEDS: VASOPRESSIN 20 UNITS in SODIUM CHL 0.9% 99 ML IV SCH (05:06)
[2023-11-19] MEDS ORDERED: SODIUM CHLORIDE 0.9% 1,000 ML IV SCH (05:30)
[2023-11-19] MEDS: SODIUM BICARB 8.4% 50Meq/50ml SYR Vial IV ONE (05:45)
[2023-11-19 05:53] LABS: Base Excess -8.9 mmol/L (-2.0-2.0)
[2023-11-19] MEDS ORDERED: TPN PER PHARMACY 0 ML IV SCH (06:15)
[2023-11-19] MEDS: SODIUM CHLORIDE 0.9% 500 ML IV ONE (07:02)
[2023-11-19 08:54] LABS: Base Excess -5.7 mmol/L (-2.0-2.0)
[2023-11-19] MEDS ORDERED: ACETAMINOPHEN IV 1000 MG/100ML (10MG/ML) IV PRN (10:30)
[2023-11-19] MEDS ORDERED: DEXTROSE (50%) 50ML SYRG IV SCH (11:15)
[2023-11-19] MEDS: SODIUM BICARB 50mEq/50ml Vial 50 ML in SOD CHL 0.45% 1,000 ML IV SCH (11:39)
[2023-11-19 12:03] LABS: Alanine Aminotransferase 28 U/L (7-40); Albumin 3.1 g/dL (3.2-4.8); Alkaline Phosphatase 124 U/L (46-116); Anion Gap 8 (5-15); Aspartate Aminotransferase 36 U/L (13-40); Bilirubin, Total 0.4 mg/dL (0.2-1.0); Blood Urea Nitrogen 28 mg/dL (9-23); Calcium 9.1 mg/dL (8.5-10.1); Carbon Dioxide 23 mmol/L (20-30); Chloride 108 mmol/L (98-107); Glucose 201 mg/dL (74-106); Potassium 5.4 mmol/L (3.5-5.1); Sodium 139 mmol/L (136-145); Total Protein 6.1 g/dL (5.7-8.2)
[2023-11-19] MEDS: ACCU-CHEK COMFORT CURVE STRIP VI SCH (13:03)
[2023-11-19] MEDS: InsuLIN REG 1unit/0.01ml Soln (100units/ml) SC SCH (13:39)
[2023-11-19] MEDS ORDERED: metroNIDAZOLE 500MG/100ML 100 ML IV SCH (14:00)
[2023-11-19] MEDS ORDERED: CLINIMIX PER PHARMACY 0 ML IV SCH (14:15)
[2023-11-19] MEDS: PIPERACILLIN-TAZOB 3.375GM 100 ML IV SCH (16:08)
[2023-11-19 16:40] LABS: Base Excess -7.6 mmol/L (-2.0-2.0)
[2023-11-19] MEDS: IPRATROPIUM BROM 0.5 MG/2.5ML INH SOL NEB SCH (18:36)
[2023-11-19] MEDS: LEVALBUTEROL HCL 1.25 MG/3 ML NEB NEB SCH (18:36)
[2023-11-19] MEDS: HYDROCORTISONE SOD SUCC 100 MG/2ML INJ VIAL IV SCH (22:08)
[2023-11-19] MEDS: AMINO ACID INFUSION IN D5W 2,000 ML IV NR (22:19)
[2023-11-19] MEDS: VANCOMYCIN HCL 125 MG CAP PO SCH (22:30)
[2023-11-20] VITALS (106 sets, daily range): BP systolic 63–155; BP diastolic 47–121; PULSE 66–117; RESP 18–51; TEMP 97.7–100.6; O2SAT 93–100
[2023-11-20 04:05] LABS: Red Cell Distribution Width 15.4 % (11.8-14.3)
[2023-11-20 04:08] LABS: Hematocrit 26.8 % (41.0-53.0); Hemoglobin 8.6 g/dL (13.5-17.5); Mean Corpuscular Hemoglobin 26.4 pg (28.0-32.0); Mean Corpuscular Volume 82.6 fL (80.0-100.0); Red Blood Cells 3.24 10^6/uL (4.5-5.90); White Blood Cell 23.2 10^3/uL (4.4-10.8)
[2023-11-20 04:29] LABS: Alanine Aminotransferase 20 U/L (7-40); Albumin 2.8 g/dL (3.2-4.8); Alkaline Phosphatase 101 U/L (46-116); Anion Gap 10 (5-15); Aspartate Aminotransferase 15 U/L (13-40); Blood Urea Nitrogen 33 mg/dL (9-23); Calcium 7.9 mg/dL (8.5-10.1); Carbon Dioxide 20 mmol/L (20-30); Chloride 112 mmol/L (98-107); Glucose 290 mg/dL (74-106); Magnesium 1.7 mg/dL (1.6-2.6); Phosphorus 5.2 mg/dL (2.4-5.1); Potassium 4.3 mmol/L (3.5-5.1); Sodium 142 mmol/L (136-145); Triglycerides 80 mg/dL (< 150)
[2023-11-20 04:30] LABS: Bilirubin, Total 0.3 mg/dL (0.2-1.0); Total Protein 5.4 g/dL (5.7-8.2)
[2023-11-20 04:37] LABS: Basophils % (manual) 0 (0.0-2.0); Blast Cells 0; Eosinophils % (manual) 0 (0-7); Metamyelocytes % 0; Myelocytes % 0; Promyelocytes % 0; Reactive Lymphocytes 0
[2023-11-20 05:49] LABS: Band Neutrophils % (manual) 28; Lymphocytes % (manual) 4 (10.0-50.0); Monocytes % (manual) 2 (0-12)
[2023-11-20 05:50] LABS: Large Platelets FEW; Platelet Estimate Increased
[2023-11-20 07:31] LABS: Base Excess -4.7 mmol/L (-2.0-2.0)
[2023-11-20] MEDS ORDERED: FLORASTOR (S. BOULARDII) 250 MG CAP PO SCH (10:00)
[2023-11-20] MEDS: FLORASTOR (S. BOULARDII) 250 MG CAP PO SCH (10:34)
[2023-11-20] MEDS: metroNIDAZOLE 500MG/100ML 100 ML IV SCH (13:28)
[2023-11-20] MEDS: AMINO ACID INFUSION IN D5W 2,000 ML IV NR (20:10)
[2023-11-20] MEDS ORDERED: ATROPINE SULF 1 MG/10ml SYR IV ONE (22:07)
[2023-11-21] VITALS (108 sets, daily range): BP systolic 84–151; BP diastolic 53–117; PULSE 66–81; RESP 19–35; TEMP 97.7–98.6; O2SAT 96–100
[2023-11-21 08:05] LABS: Basophils # (auto) 0.1 10 ^3/uL (0-0.2); Basophils % (auto) 0.6 % (0.0-2.0); Eosinophils # (auto) 0 10 ^3/uL (0-0.8); Hemoglobin 7.6 g/dL (13.5-17.5); Lymphocytes # (auto) 0.7 10 ^3/uL (0.4-5.4); Lymphocytes % (auto) 3.7 % (10.0-50.0); Mean Corpuscular Hemoglobin 26.9 pg (28.0-32.0); Mean Corpuscular Hgb Conc. 32.9 g/dL (32.0-36.0); Mean Corpuscular Volume 81.7 fL (80.0-100.0); Monocytes # (auto) 0.9 10 ^3/uL (0-1.3); Neutrophils # (auto) 16.8 10 ^3/uL (1.6-8.6); Neutrophils % (auto) 90.7 % (37.0-80.0); Red Blood Cells 2.82 10^6/uL (4.5-5.90); Red Cell Distribution Width 15.4 % (11.8-14.3); White Blood Cell 18.5 10^3/uL (4.4-10.8)
[2023-11-21 08:22] LABS: Alanine Aminotransferase 15 U/L (7-40); Albumin 2.3 g/dL (3.2-4.8); Alkaline Phosphatase 76 U/L (46-116); Anion Gap 6 (5-15); Aspartate Aminotransferase 8 U/L (13-40); BUN/Creatinine Ratio 43.2 (10.0-20.0); Bilirubin, Total 0.2 mg/dL (0.2-1.0); Blood Urea Nitrogen 32 mg/dL (9-23); Calcium 6.2 mg/dL (8.5-10.1); Carbon Dioxide 22 mmol/L (20-30); Chloride 118 mmol/L (98-107); Magnesium 1.5 mg/dL (1.6-2.6); Phosphorus 2.5 mg/dL (2.4-5.1); Potassium 3.1 mmol/L (3.5-5.1); Sodium 146 mmol/L (136-145); Total Protein 4.4 g/dL (5.7-8.2)
[2023-11-21 08:27] LABS: Glucose 158 mg/dL (74-106)
[2023-11-21] MEDS: POTASSIUM CHL 20MEQ/100ML 100 ML IV SCH (09:44)
[2023-11-21] MEDS: cefTRIAXone 1GM/50ML D5W 50 ML IV SCH (09:46)
[2023-11-21] MEDS: MAGNESIUM SULFATE 1GM/100ML 100 ML IV SCH (10:10)
[2023-11-21] MEDS ORDERED: Glucerna 1.2 Cal 1Liter BOTTLE GT SCH (14:00)
[2023-11-21] MEDS: metroNIDAZOLE 500 MG TAB PO SCH (14:52)
[2023-11-21] MEDS: AMINO ACID INFUSION IN D5W 2,000 ML IV NR (21:07)
[2023-11-22] VITALS (109 sets, daily range): BP systolic 84–153; BP diastolic 54–107; PULSE 67–86; RESP 20–36; TEMP 97.7–98.7; O2SAT 93–100
[2023-11-22 04:25] LABS: Basophils # (auto) 0 10 ^3/uL (0-0.2); Basophils % (auto) 0.2 % (0.0-2.0); Eosinophils # (auto) 0 10 ^3/uL (0-0.8); Eosinophils % (auto) 0.2 % (0.0-7.0); Lymphocytes # (auto) 0.5 10 ^3/uL (0.4-5.4); Neutrophils # (auto) 13.7 10 ^3/uL (1.6-8.6); Nucleated Red Blood Cells % 0.1 %; Red Cell Distribution Width 15.6 % (11.8-14.3)
[2023-11-22 04:27] LABS: Hematocrit 23.3 % (41.0-53.0); Hemoglobin 7.6 g/dL (13.5-17.5); Lymphocytes % (auto) 3.2 % (10.0-50.0); Mean Corpuscular Hemoglobin 26.5 pg (28.0-32.0); Mean Corpuscular Hgb Conc. 32.6 g/dL (32.0-36.0); Mean Corpuscular Volume 81.2 fL (80.0-100.0); Monocytes # (auto) 0.6 10 ^3/uL (0-1.3); Monocytes % (auto) 3.7 % (0.0-12.0); Neutrophils % (auto) 92.7 % (37.0-80.0); Red Blood Cells 2.87 10^6/uL (4.5-5.90); White Blood Cell 14.8 10^3/uL (4.4-10.8)
[2023-11-22 04:50] LABS: Alanine Aminotransferase 13 U/L (7-40); Albumin 2.7 g/dL (3.2-4.8); Alkaline Phosphatase 89 U/L (46-116); Anion Gap 6 (5-15); Aspartate Aminotransferase < 8 U/L (13-40); BUN/Creatinine Ratio 47.2 (10.0-20.0); Blood Urea Nitrogen 34 mg/dL (9-23); Calcium 8.1 mg/dL (8.7-10.4); Carbon Dioxide 25 mmol/L (20-30); Chloride 114 mmol/L (98-107); Glucose 144 mg/dL (74-106); Magnesium 2.5 mg/dL (1.6-2.6); Potassium 3.6 mmol/L (3.5-5.1); Sodium 145 mmol/L (136-145)
[2023-11-22 04:51] LABS: Bilirubin, Total 0.2 mg/dL (0.2-1.0); Phosphorus 2.2 mg/dL (2.4-5.1); Total Protein 5.2 g/dL (5.7-8.2)
[2023-11-22 07:29] LABS: Base Excess -0.3 mmol/L (-2.0-2.0)
[2023-11-22] MEDS: FUROSEMIDE 40 MG/4 ML VIAL IV ONE (08:23)
[2023-11-22] MEDS: POTASSIUM CHL 20MEQ/100ML 100 ML IV ONE (09:23)
[2023-11-22] MEDS: POTASSIUM PHOSPHATE 22 MEQ in SODIUM CHL 0.9% 100 ML IV ONE (12:01)
[2023-11-22] MEDS ORDERED: DEXTROSE (50%) 50ML SYRG IV PRN (16:00)
[2023-11-22] MEDS: ACCU-CHEK COMFORT CURVE STRIP VI SCH (17:45)
[2023-11-22] MEDS: InsuLIN REG 1unit/0.01ml Soln (100units/ml) SC SCH (17:58)
[2023-11-22] MEDS ORDERED: AMINO ACID INFUSION IN D5W 2,000 ML IV NR (20:00)
[2023-11-23] VITALS (92 sets, daily range): BP systolic 114–174; BP diastolic 64–106; PULSE 70–104; RESP 14–91; TEMP 97.5–98.3; O2SAT 87–100
[2023-11-23 04:03] LABS: Hematocrit 27.4 % (41.0-53.0); Hemoglobin 8.9 g/dL (13.5-17.5); Mean Corpuscular Hemoglobin 26.4 pg (28.0-32.0); Mean Corpuscular Hgb Conc. 32.6 g/dL (32.0-36.0); Mean Corpuscular Volume 80.8 fL (80.0-100.0); Red Blood Cells 3.39 10^6/uL (4.5-5.90); Red Cell Distribution Width 15.9 % (11.8-14.3)
[2023-11-23 04:04] LABS: Basophils % (manual) 0 (0.0-2.0); Blast Cells 0; Eosinophils % (manual) 0 (0-7); Metamyelocytes % 0; Myelocytes % 0; Promyelocytes % 0; Reactive Lymphocytes 0
[2023-11-23 04:18] LABS: Alanine Aminotransferase 12 U/L (7-40); Albumin 2.9 g/dL (3.2-4.8); Alkaline Phosphatase 101 U/L (46-116); Anion Gap 8 (5-15); Aspartate Aminotransferase 9 U/L (13-40); BUN/Creatinine Ratio 46.3 (10.0-20.0); Bilirubin, Total 0.3 mg/dL (0.2-1.0); Blood Urea Nitrogen 31 mg/dL (9-23); Calcium 8.2 mg/dL (8.5-10.1); Carbon Dioxide 24 mmol/L (20-30); Chloride 114 mmol/L (98-107); Glucose 113 mg/dL (74-106); Potassium 3.8 mmol/L (3.5-5.1); Sodium 146 mmol/L (136-145)
[2023-11-23 04:19] LABS: Total Protein 5.7 g/dL (5.7-8.2)
[2023-11-23 04:35] LABS: Band Neutrophils % (manual) 16; Lymphocytes % (manual) 3 (10.0-50.0); Monocytes % (manual) 6 (0-12); Platelet Estimate Increased
[2023-11-23 04:36] LABS: Hypochromia Slight
[2023-11-23] MEDS: fentaNYL Drip 2500mCg/250mlNS 250 ML IV SCH (07:00)
[2023-11-23 07:03] LABS: Base Excess 0.5 mmol/L (-2.0-2.0)
[2023-11-23 10:13] LABS: Base Excess -0.5 mmol/L (-2.0-2.0)
[2023-11-24] VITALS (37 sets, daily range): BP systolic 140–180; BP diastolic 80–105; PULSE 80–98; RESP 14–25; TEMP 97.5–98.1; O2SAT 87–100
[2023-11-24 03:56] LABS: Anion Gap 7 (5-15); Carbon Dioxide 25 mmol/L (20-30); Chloride 114 mmol/L (98-107); Potassium 3.6 mmol/L (3.5-5.1); Sodium 146 mmol/L (136-145)
[2023-11-24 03:57] LABS: Calcium 8.2 mg/dL (8.7-10.4)
[2023-11-24 04:02] LABS: BUN/Creatinine Ratio 38.9 (10.0-20.0); Blood Urea Nitrogen 21 mg/dL (9-23); Glucose 95 mg/dL (74-106)
[2023-11-24 04:05] LABS: Hemoglobin 9.4 g/dL (13.5-17.5); Mean Corpuscular Hemoglobin 26.3 pg (28.0-32.0); Mean Corpuscular Hgb Conc. 32.6 g/dL (32.0-36.0); Mean Corpuscular Volume 80.8 fL (80.0-100.0); Red Blood Cells 3.59 10^6/uL (4.5-5.90); Red Cell Distribution Width 15.9 % (11.8-14.3); White Blood Cell 12.3 10^3/uL (4.4-10.8)
[2023-11-24 04:08] LABS: Basophils % (manual) 0 (0.0-2.0); Blast Cells 0; Metamyelocytes % 0; Myelocytes % 0; Promyelocytes % 0; Reactive Lymphocytes 0
[2023-11-24 05:31] LABS: Band Neutrophils % (manual) 1; Eosinophils % (manual) 4 (0-7); Lymphocytes % (manual) 12 (10.0-50.0); Monocytes % (manual) 6 (0-12); Platelet Estimate Increased
[2023-11-24 05:32] LABS: Anisocytosis Slight; Stomatocytes Few
[2023-11-24] MEDS ORDERED: LABETALOL HCL 5 MG/ML 4ML SYRINGE IV PRN (11:00)
[2023-11-24] MEDS: LABETALOL HCL 5 MG/ML ML 20ML VIAL IV PRN (11:46)
[2023-11-24] MEDS: METOPROLOL SUCCINATE XL 50 MG TAB PO SCH (15:22)
[2023-11-24] MEDS: FUROSEMIDE 20 MG TAB PO SCH (15:22)
[2023-11-25] VITALS (22 sets, daily range): BP systolic 101–182; BP diastolic 19–126; PULSE 27–124; RESP 0–120; TEMP 70.9–99.2; O2SAT 74–98
[2023-11-25] MEDS: FUROSEMIDE 20 MG/2 ML VIAL IV ONE (01:03)
[2023-11-25] MEDS ORDERED: ETOMIDATE (2MG/ML) 20ML VIAL IV ONE (01:41)
[2023-11-25] MEDS ORDERED: SUCCINYLCHOLINE CHLORIDE 20 MG/ML 10ML VIAL IV ONE (01:42)
[2023-11-25] MEDS ORDERED: MIDAZOLAM DRIP 50 mg/50mL 50 ML IV SCH (02:00)
[2023-11-25] MEDS ORDERED: AMIODARONE BOLUS KIT 100 ML IV ONE (02:05)
[2023-11-25] MEDS ORDERED: AMIODARONE HCL (50 MG/ ML) 3 ML VIAL IV ONE ×3 (02:08→06:30)
[2023-11-25] MEDS ORDERED: EPINEPHrine HCL 250 ML IV ONE (02:41)
[2023-11-25] MEDS ORDERED: ATROPINE SULFATE 1 MG/1 ML VIAL ONE (03:00)
[2023-11-25] MEDS ORDERED: EPINEPHrine HCL 250 ML IV SCH (03:15)
[2023-11-25] MEDS ORDERED: EPINEPHrine HCL 1 MG/10 ML SYRG IV ONE (09:54)
== END 2023-11-25 09:55 | DRG 710 ==
LOC: EDBD 18:29 → ER 18:29 → TELE-WESTW 11-02 00:44 → TELE 11-02 00:44 → TELE-WESTW 11-02 03:23 → DOU IN ICU 11-09 18:13 → TELE-CENTR 11-11 12:15 → CENTRAL 11-14 00:46 → TELE-CENTR 11-14 14:10 → CENTRAL 11-15 00:14 → ICU WEST 11-19 03:29 → DOU IN ICU 11-24 14:52 → ICU CENTRL 11-25 01:54
PROVIDERS: ADMIT Internal Medicine; ATTEND Nurse Practitioner Acute Care
PROC: 0Y6N0Z0 Detachment at Left Foot, Complete, Open Approach (ICD-10-PCS; 2023-11-05)
PROC: 5A09357 Assistance with Respiratory Ventilation, Less than 24 Consecutive Hours, Continuous Positive Airway Pressure (ICD-10-PCS; 2023-11-09)
PROC: 0Y6J0Z3 Detachment at Left Lower Leg, Low, Open Approach (ICD-10-PCS; 2023-11-09)
PROC: 0Y6J0Z1 Detachment at Left Lower Leg, High, Open Approach (ICD-10-PCS; 2023-11-14)
PROC: 5A1955Z Respiratory Ventilation, Greater than 96 Consecutive Hours (ICD-10-PCS; principal; 2023-11-19)
PROC: 02HV33Z Insertion of Infusion Device into Superior Vena Cava, Percutaneous Approach (ICD-10-PCS; 2023-11-19)
PROC: 0BH17EZ Insertion of Endotracheal Airway into Trachea, Via Natural or Artificial Opening (ICD-10-PCS; 2023-11-19)
PROC: 03HY32Z Insertion of Monitoring Device into Upper Artery, Percutaneous Approach (ICD-10-PCS; 2023-11-19)
PROC: 5A12012 Performance of Cardiac Output, Single, Manual (ICD-10-PCS; 2023-11-19)
PROC: 5A2204Z Restoration of Cardiac Rhythm, Single (ICD-10-PCS; 2023-11-19)
PROC: 0D9670Z Drainage of Stomach with Drainage Device, Via Natural or Artificial Opening (ICD-10-PCS; 2023-11-19)
PROC: 02HV33Z Insertion of Infusion Device into Superior Vena Cava, Percutaneous Approach (ICD-10-PCS; 2023-11-25)
PROC: 0BH17EZ Insertion of Endotracheal Airway into Trachea, Via Natural or Artificial Opening (ICD-10-PCS; 2023-11-25)
PROC: 5A12012 Performance of Cardiac Output, Single, Manual (ICD-10-PCS; 2023-11-25)
DX: A40.9 Streptococcal sepsis, unspecified (principal); J96.01 Acute respiratory failure with hypoxia; N17.0 Acute kidney failure with tubular necrosis; I50.43 Acute on chronic combined systolic (congestive) and diastolic (congestive) heart failure; J18.9 Pneumonia, unspecified organism; I21.A1 Myocardial infarction type 2; A04.72 Enterocolitis due to Clostridium difficile, not specified as recurrent; C15.9 Malignant neoplasm of esophagus, unspecified; E87.1 Hypo-osmolality and hyponatremia; E11.52 Type 2 diabetes mellitus with diabetic peripheral angiopathy with gangrene; L02.416 Cutaneous abscess of left lower limb; E11.610 Type 2 diabetes mellitus with diabetic neuropathic arthropathy; M86.672 Other chronic osteomyelitis, left ankle and foot; L03.116 Cellulitis of left lower limb; R16.0 Hepatomegaly, not elsewhere classified; D64.9 Anemia, unspecified; E11.65 Type 2 diabetes mellitus with hyperglycemia; E87.8 Other disorders of electrolyte and fluid balance, not elsewhere classified; E11.69 Type 2 diabetes mellitus with other specified complication; L97.529 Non-pressure chronic ulcer of other part of left foot with unspecified severity; T79.7XXA Traumatic subcutaneous emphysema, initial encounter; F12.90 Cannabis use, unspecified, uncomplicated; R74.01 Elevation of levels of liver transaminase levels; N18.2 Chronic kidney disease, stage 2 (mild); I13.0 Hypertensive heart and chronic kidney disease with heart failure and stage 1 through stage 4 chronic kidney disease, or unspecified chronic kidney disease; E66.9 Obesity, unspecified; E87.6 Hypokalemia; E11.22 Type 2 diabetes mellitus with diabetic chronic kidney disease; I07.1 Rheumatic tricuspid insufficiency; M21.962 Unspecified acquired deformity of left lower leg; I46.9 Cardiac arrest, cause unspecified; Z83.3 Family history of diabetes mellitus; Z87.891 Personal history of nicotine dependence; Z85.850 Personal history of malignant neoplasm of thyroid; Z68.26 Body mass index [BMI] 26.0-26.9, adult; Z85.47 Personal history of malignant neoplasm of testis
CPT/HCPCS: 36415; 36600; 70450; 71045; 71260; 73700; 73718; 74018; 74177; 76700; 80048; 80053; 80061; 80069; 80202; 80307; 81001; 82565; 82570; 82728; 82805; 82962; 83036; 83540; 83550; 83605; 83690; 83735; 83880; 84100; 84156; 84443; 84478; 84484; 85007; 85025; 85027; 85379; 85610; 85652; 85730; 86038; 86704; 86706; 86708; 86803; 86850; 86900; 86901; 87040; 87070; 87075; 87077; 87081; 87186; 87205; 87340; 87493; 92610; 92950; 92960; 93005; 93306; 93926; 93971; 94002; 94003; 94640; 94660; 96361; 96365; 96372; 96375; 97163; 99291; G0378; J0131; J0171; J0330; J0461; J1815; J2001; J2250; J2405; J2543; J2704; J3480; J3490; J7060